=== PATIENT | male | born 2000 | race Caucasian/White ===

== ENCOUNTER 2025-05-10 09:31 | Emergency (ER) | payer OTHER ==
[2025-05-10 10:14] LABS: Absolute Lymphocytes (CBC) 1.9 K/uL (0.7-4.9); Hematocrit 48.9 % (39.6-49.0); Hemoglobin 16.6 g/dL (13.6-17.9); MCH 29.9 pg (27.0-35.0); MCHC 34.0 g/dL (32.0-36.0); MCV 87.7 fL (80-100); MPV 8.2 fL (7.6-11.3); Nucleated RBC Absolute Count 0.0 (0-0); Nucleated Red Blood Cells % 0.3 % (0-0); RBC Red Blood Cell Count 5.57 M/uL (4.33-5.43); White Blood Count 7.40 thou/uL (4.3-10.9)
[2025-05-10 10:17] LABS: PT Prothrombin Time 12.4 SECONDS (10-13.0); PTT, Activated Partial Thromb 35.1 SECONDS (27.2-37.4); Protime INR 1.1
[2025-05-10 10:27] LABS: Anion Gap 10.6 mEq/L (5.0-15.0); BUN Blood Urea Nitrogen 17.0 mg/dL (7-18); Glucose Level 93.0 mg/dL (74-106); Potassium 3.6 mEq/L (3.5-5.1)
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
--- NOTE | 2025-05-10 11:06 | RAD REPORT ---
EXAM: Chest Abdomen Pelvis W Cont CLINICAL INDICATION: Chest and abdominal pain TECHNIQUE: CT chest, abdomen and pelvis was performed, with 100 cc Isovue-300 IV contrast, as per de partment protocol. Axial, sagittal and coronal reconstructions were obtained. One or more of the following dose reduction techniques were used: Automated exposure control, adjustment of the mA and/o r kV according to the patient size, and/or iterative reconstruction. Unless otherwise specified, incidental findings do not require dedicated imaging follow-up. [id number]. Oral contrast not given. This limits evaluation of the bowel. COMPARISON: None FINDINGS: A pulmonary contusion not seen. No mediastinal hematoma noted No pleural effusion.. No pericardial effusion Liver, spleen, pancreas, adrenals, kidneys and bladder do not demonstrate an acute traumatic injury. There is no evidence of diverticulitis. Small left inguinal hernia. IMPRESSION: No acute traumatic injury involving chest, abdomen or pelvis seen
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
[2025-05-10 12:17] VITALS: BP 129/64; TEMP 98.5; O2SAT 99
== END 2025-05-10 11:53 | disposition home or self-care (01) ==
LOC: ER 09:31
DX: S09.90XA Unspecified injury of head, initial encounter (principal); V48.5XXA Car driver injured in noncollision transport accident in traffic accident, initial encounter; Y93.89 Activity, other specified; Y92.410 Unspecified street and highway as the place of occurrence of the external cause; Y99.9 Unspecified external cause status
CPT/HCPCS: 36415; 70450; 70486; 71260; 72125; 74177; 76377; 80048; 85025; 85610; 85730; 99284